=== PATIENT | male | born 1950 | race Caucasian/White ===

== ENCOUNTER 2019-02-15 07:14 | Day surgery (SDC) | payer MEDICARE, MEDICAID ==
[~2019-02-15] VITALS: Ht 182.9 cm; Wt 84.8 kg
[2019-02-15] MEDS ORDERED: SIMETHICONE 40 MG/0.6 ML ML ONE (07:48)
[2019-02-15] MEDS ORDERED: MIDAZOLAM HCL 5 MG/5 ML VIAL ONE (07:51)
[2019-02-15] MEDS ORDERED: fentaNYL CITRATE/PF 100 MCG/2 ML AMP ONE (07:51)
[2019-02-15 10:02] VITALS: BP_SYST 113
== END 2019-02-15 10:00 | disposition home or self-care (01) ==
LOC: SDS 07:14
PROVIDERS: ATTEND Surgery
DX: D12.5 Benign neoplasm of sigmoid colon (principal); D12.3 Benign neoplasm of transverse colon; K52.9 Noninfective gastroenteritis and colitis, unspecified; K64.8 Other hemorrhoids; M19.90 Unspecified osteoarthritis, unspecified site
CPT/HCPCS: 45380; 45381; 88305; J2250; J3010; J7030; 45384

== ENCOUNTER 2019-03-29 10:27 | Day surgery (SDC) | payer MEDICARE, MEDICAID ==
[~2019-03-29] VITALS: Ht 182.9 cm; Wt 79.8 kg
[2019-03-29] MEDS ORDERED: WATER FOR IRRIGATION,STERILE 1,000 ML IRRIG.SOLN IR ONE (13:25)
[2019-03-29] MEDS ORDERED: LR 1,000 ML IV.SOLN IV ONE (13:25)
[2019-03-29] MEDS ORDERED: MIDAZOLAM HCL 5 MG/ML VIAL (VERSED) IV ONE (13:25)
[2019-03-29] MEDS ORDERED: PROPOFOL 200MG/ 20ML VIAL (DIPRIVAN) IV ONE (13:25)
[2019-03-29] MEDS ORDERED: INSULIN NPH/REGULAR 70-30, 100 UNITS/ML, 10 ML VIAL SUBCUT ONE (13:30)
[2019-03-29] MEDS ORDERED: INSULIN REGULAR, HUMAN 100 UNITS/ML, 10 ML VIAL (novoLIN R) ONE (13:40)
[2019-03-29 13:55] VITALS: BP_SYST 114
== END 2019-03-29 14:40 | disposition home or self-care (01) ==
LOC: SDS 10:27
PROVIDERS: ATTEND Surgery
DX: D12.2 Benign neoplasm of ascending colon (principal); D12.3 Benign neoplasm of transverse colon; D12.4 Benign neoplasm of descending colon; K64.8 Other hemorrhoids; Z79.899 Other long term (current) drug therapy; Z98.890 Other specified postprocedural states; E11.9 Type 2 diabetes mellitus without complications
CPT/HCPCS: 45380; 45381; 82962; 88305; J1815 ×2; J2250; J2704; J7120